=== PATIENT | female | born 1970 | race Caucasian/White ===

== ENCOUNTER 2017-11-29 12:16 | Emergency (ER) | payer OTHER ==
--- NOTE | 2017-11-29 12:23 | ED Physician Chart ---
ED Chief Complaint/HPI - Patient Information Date Seen:: 11/29/17 Time Seen:: 12:18 Chief Complaint:: Dizziness History of Present Illness:: 47 yo female with history of vertigo for 1 year, developed acute onset of dizziness 20 minutes ago this morning. She had nausea but no vomiting. She had left ear pain. Per her ENT physician, her left TM was abnormal. She had home medication meclizine 25mg as needed. ED Review of Systems - Review of Systems General/Constitutional: No fever Skin: No rash Head: No headache Eyes: No pain ENT: Earache (left) Neck: No neck pain Cardio Vascular: No chest pain Pulmonary: SOB GI: Nausea, No vomiting Musculoskeletal: No bone or joint pain Neurological: No focal symptoms ED Past Medical History - Past Medical History Past Medical History: DM, Other (left ear pain ) Social History: Non Smoker, No Alcohol, No Drug Use Surgical History: Cholecystectomy Family Medical History - Family Member Mother History Unknown: Yes Ethnicity: Living Status: Still Living ED Physical Exam - Physical Examination General/Constitutional: Awake Head: Atraumatic Eyes: PERRL Skin: No skin lesions Other ENMT comments:: Bj-Hallpike test positive bilaterally Neck: No nuchal rigidity Respiratory: No Wheeze/Rhonchi/Rales Cardio Vascular: RRR, No murmur, gallop, rubs, NL S1 S2 GI: No tenderness/rebounding/guarding Extremities: normal strength in all extremities Neuro/Psych: No focal deficits ED Labs/Radiology/EKG Results - Lab Results Results: Laboratory Last Values WBC 7.1 Th/cmm (4.8-10.8) 11/29/17 12:42 RBC 4.97 Mil/cmm (3.80-5.10) 11/29/17 12:42 Hgb 14.1 gm/dL (12-16) 11/29/17 12:42 Hct 41.7 % (41.0-60) 11/29/17 12:42 MCV 83.9 fl (81-100) 11/29/17 12:42 MCH 28.4 pg (27.0-31.0) 11/29/17 12:42 MCHC Differential 33.9 pg (28.0-36.0) 11/29/17 12:42 RDW 12.0 % (11.5-20.0) 11/29/17 12:42 Plt Count 277 Th/cmm (150-400) 11/29/17 12:42 MPV 7.5 fl 11/29/17 12:42 Neutrophils % 68.5 % (40.0-80.0) 11/29/17 12:42 Lymphocytes % 24.5 % (20.0-50.0) 11/29/17 12:42 Monocytes % 4.0 % (2.0-10.0) 11/29/17 12:42 Eosinophils % 2.5 % (0.0-5.0) 11/29/17 12:42 Basophils % 0.5 % (0.0-2.0) 11/29/17 12:42 Sodium 138 mEq/L (136-145) 11/29/17 12:42 Potassium 3.6 mEq/L (3.5-5.1) 11/29/17 12:42 Chloride 103 mEq/L (98-107) 11/29/17 12:42 Carbon Dioxide 27.8 mEq/L (21.0-31.0) 11/29/17 12:42 Anion Gap 10.8 (7.0-16.0) 11/29/17 12:42 BUN 19 mg/dL (7-25) 11/29/17 12:42 Creatinine 1.1 mg/dL (0.6-1.2) 11/29/17 12:42 Est GFR ( Amer) > 60.0 ml/min (>90) 11/29/17 12:42 Est GFR (Non-Af Amer) 56.3 ml/min 11/29/17 12:42 BUN/Creatinine Ratio 17.3 11/29/17 12:42 Glucose 148 mg/dL (70-105) H 11/29/17 12:42 Calcium 9.4 mg/dL (8.6-10.3) 11/29/17 12:42 Total Bilirubin 0.4 mg/dL (0.3-1.0) 11/29/17 12:42 AST 21 U/L (13-39) 11/29/17 12:42 ALT 26 U/L (7-52) 11/29/17 12:42 Alkaline Phosphatase 54 U/L (34-104) 11/29/17 12:42 Troponin I < 0.01 ng/mL (0.01-0.05) L 11/29/17 12:42 B-Natriuretic Peptide 17.7 pg/mL (5.0-100.0) 11/29/17 12:42 Total Protein 7.2 gm/dL (6.0-8.3) 11/29/17 12:42 Albumin 4.2 gm/dL (3.7-5.3) 11/29/17 12:42 Globulin 3.0 gm/dL 11/29/17 12:42 Albumin/Globulin Ratio 1.4 (1.0-1.8) 11/29/17 12:42 Laboratory Last Values WBC 7.1 Th/cmm (4.8-10.8) 11/29/17 12:42 RBC 4.97 Mil/cmm (3.80-5.10) 11/29/17 12:42 Hgb 14.1 gm/dL (12-16) 11/29/17 12:42 Hct 41.7 % (41.0-60) 11/29/17 12:42 MCV 83.9 fl (81-100) 11/29/17 12:42 MCH 28.4 pg (27.0-31.0) 11/29/17 12:42 MCHC Differential 33.9 pg (28.0-36.0) 11/29/17 12:42 RDW 12.0 % (11.5-20.0) 11/29/17 12:42 Plt Count 277 Th/cmm (150-400) 11/29/17 12:42 MPV 7.5 fl 11/29/17 12:42 Neutrophils % 68.5 % (40.0-80.0) 11/29/17 12:42 Lymphocytes % 24.5 % (20.0-50.0) 11/29/17 12:42 Monocytes % 4.0 % (2.0-10.0) 11/29/17 12:42 Eosinophils % 2.5 % (0.0-5.0) 11/29/17 12:42 Basophils % 0.5 % (0.0-2.0) 11/29/17 12:42 Sodium 138 mEq/L (136-145) 11/29/17 12:42 Potassium 3.6 mEq/L (3.5-5.1) 11/29/17 12:42 Chloride 103 mEq/L (98-107) 11/29/17 12:42 Carbon Dioxide 27.8 mEq/L (21.0-31.0) 11/29/17 12:42 Anion Gap 10.8 (7.0-16.0) 11/29/17 12:42 BUN 19 mg/dL (7-25) 11/29/17 12:42 Creatinine 1.1 mg/dL (0.6-1.2) 11/29/17 12:42 Est GFR ( Amer) > 60.0 ml/min (>90) 11/29/17 12:42 Est GFR (Non-Af Amer) 56.3 ml/min 11/29/17 12:42 BUN/Creatinine Ratio 17.3 11/29/17 12:42 Glucose 148 mg/dL (70-105) H 11/29/17 12:42 Calcium 9.4 mg/dL (8.6-10.3) 11/29/17 12:42 Total Bilirubin 0.4 mg/dL (0.3-1.0) 11/29/17 12:42 AST 21 U/L (13-39) 11/29/17 12:42 ALT 26 U/L (7-52) 11/29/17 12:42 Alkaline Phosphatase 54 U/L (34-104) 11/29/17 12:42 Troponin I < 0.01 ng/mL (0.01-0.05) L 11/29/17 12:42 B-Natriuretic Peptide 17.7 pg/mL (5.0-100.0) 11/29/17 12:42 Total Protein 7.2 gm/dL (6.0-8.3) 11/29/17 12:42 Albumin 4.2 gm/dL (3.7-5.3) 11/29/17 12:42 Globulin 3.0 gm/dL 11/29/17 12:42 Albumin/Globulin Ratio 1.4 (1.0-1.8) 11/29/17 12:42 Urine Source RANDOM 11/29/17 14:45 Urine Color YELLOW 11/29/17 14:45 Urine Clarity CLEAR (CLEAR) 11/29/17 14:45 Urine pH 7.0 (4.6 - 8.0) 11/29/17 14:45 Ur Specific [place] 1.015 (1.005-1.030) 11/29/17 14:45 Urine Protein NEGATIVE mg/dL (NEGATIVE) 11/29/17 14:45 Urine Glucose (UA) NEGATIVE mg/dL (NEGATIVE) 11/29/17 14:45 Urine Ketones NEGATIVE mg/dL (NEGATIVE) 11/29/17 14:45 Urine Blood TRACE (NEGATIVE) 11/29/17 14:45 Urine Nitrate NEGATIVE (NEGATIVE) 11/29/17 14:45 Urine Bilirubin NEGATIVE (NEGATIVE) 11/29/17 14:45 Urine Urobilinogen 0.2 E.U./dL (0.2 - 1.0) 11/29/17 14:45 Ur Leukocyte Esterase NEGATIVE (NEGATIVE) 11/29/17 14:45 Urine RBC 2-5 /hpf (0-5) 11/29/17 14:45 Urine WBC 0-2 /hpf (0-5) 11/29/17 14:45 Ur Epithelial Cells MODERATE /lpf (FEW) 11/29/17 14:45 Urine Bacteria 1+ /hpf (NONE SEEN) H 11/29/17 14:45 ED Assessment - Assessment General Assessment: BPPV Assessment/Comments:: CBC, CMP, UA EKG Zofran 4mg IV Meclizine 25mg PO NS 1L IV bolus Reglan 10mg IV D/c home F/u ENT physician Meclizine 25mg bid prn for dizziness ED Septic Shock - . Is Septic Shock (SBP<90, OR Lactate>4 mmol\L) present?: No ED Reassessment (Disposition) - Reassessment Reassessment Condition:: Improved - Patient Disposition Discharge/Transfer:: Home ED Discharge Plan - Patient Disposition Instructions: Vertigo, [id number]
[2017-11-29 12:51] LABS: % BASOPHILS 0.5 % (0.0-2.0); % EOSINOPHILS 2.5 % (0.0-5.0); % LYMPHOCYTES 24.5 % (20.0-50.0); % NEUTROPHILS 68.5 % (40.0-80.0); EOSINOPHILE ABSOLUTE 0.2 Th/cmm (0.1-0.4); HEMATOCRIT 41.7 % (41.0-60); HEMOGLOBIN 14.1 gm/dL (12-16); LYMPHOCYTE ABSOLUTE 1.7 Th/cmm (1.5-3.0); MEAN CELL VOLUME 83.9 fl (81-100); MEAN CORPUSCULAR HEMOGLOBIN 28.4 pg (27.0-31.0); MEAN CORPUSCULAR HGB CONC 33.9 pg (28.0-36.0); MEAN PLATELET VOLUME 7.5 fl; MONOCYTE ABSOLUTE 0.3 Th/cmm (0.3-1.0); NEUTROPHILE ABSOLUTE 4.9 Th/cmm (1.8-8.0); PLATELET COUNT 277 Th/cmm (150-400); RED BLOOD COUNT 4.97 Mil/cmm (3.80-5.10); WHITE BLOOD COUNT 7.1 Th/cmm (4.8-10.8)
[2017-11-29 13:05] LABS: ALB/GLOB RATIO 1.4 (1.0-1.8); ALBUMIN 4.2 gm/dL (3.7-5.3); ALKALINE PHOSPHATASE 54 U/L (34-104); ANION GAP 10.8 (7.0-16.0); BILIRUBIN,TOTAL 0.4 mg/dL (0.3-1.0); BUN - UREA NITROGEN 19 mg/dL (7-25); CALCIUM SERUM 9.4 mg/dL (8.6-10.3); CARBON DIOXIDE 27.8 mEq/L (21.0-31.0); CHLORIDE 103 mEq/L (98-107); CREATININE - SERUM 1.1 mg/dL (0.6-1.2); GFR AFRICAN-AMERICAN > 60.0 ml/min (>90); GFR NON AFRICAN-AMERICAN 56.3 ml/min; GLUCOSE 148 mg/dL (70-105); POTASSIUM SERUM 3.6 mEq/L (3.5-5.1); SGOT 21 U/L (13-39); SGPT/ALT 26 U/L (7-52); SODIUM SERUM 138 mEq/L (136-145); TOTAL PROTEIN,SERUM 7.2 gm/dL (6.0-8.3)
[2017-11-29] MEDS ORDERED: Sodium Chloride 0.9% 1,000 ML IV ONE (13:14)
[2017-11-29] MEDS ORDERED: Metoclopramide 5 mg/mL 2mL Vial IVP STA (15:28)
[2017-11-29] MEDS ORDERED: Metoclopramide 5 mg/mL 2mL Vial ONE (15:29)
[2017-11-29 15:46] LABS: URINE MICROSCOPIC INDICATED? YES; URINE SOURCE RANDOM
[2017-11-29 15:50] LABS: URINE BILIRUBIN NEGATIVE (NEGATIVE); URINE BLOOD TRACE (NEGATIVE); URINE GLUCOSE (UA) NEGATIVE (NEGATIVE); URINE KETONE NEGATIVE (NEGATIVE); URINE LEUKOCYTE ESTERASE NEGATIVE (NEGATIVE); URINE NITRATE NEGATIVE (NEGATIVE); URINE PROTEIN NEGATIVE (NEGATIVE); URINE UROBILINOGEN 0.2 E.U./dL (0.2 - 1.0)
[2017-11-29 15:52] LABS: URINE CLARITY CLEAR (CLEAR); URINE COLOR YELLOW
[2017-11-29 15:55] LABS: URINE BACTERIA 1+ /hpf (NONE SEEN); URINE EPITHELIAL CELLS MODERATE /lpf (FEW); URINE WBC 0-2 /hpf (0-5)
== END 2017-11-29 16:00 | disposition home or self-care (01) ==
LOC: ER 12:16
DX: H81.12 Benign paroxysmal vertigo, left ear (principal); E11.9 Type 2 diabetes mellitus without complications; Z90.49 Acquired absence of other specified parts of digestive tract
CPT/HCPCS: 99285; 96374; 96375; 93005; 84484; 83880; 36415; 85025; 81001; 80053; J2405; J2765; J7030